=== PATIENT | male | born 1950 | race Caucasian/White ===

== ENCOUNTER → 2017-05-09 | Outpatient (CLI) | payer BC, OTHER ==
[~2017-05-09] MED LIST: ASPIRIN 81M81 MG/TA2; COZAAR 50MG50 MG/TAB; FLONASE NASAL S16 GM NS; GENTAMICIN180 MG/501 NS; LEVAQUIN 750MG750 M1 PO; LISINOPRIL10 MG PO; PHENERGAN W/CO120 M1 PO; PREDNISONE20 MG PO; SINGULAIR PO; SYMBICORT 10.10.2 ML IH; TETRACYCLINE H100 MG
== END ==
LOC: COL.VAS 09:17
DX: I08.2 Rheumatic disorders of both aortic and tricuspid valves (principal); I77.810 Thoracic aortic ectasia; Z79.899 Other long term (current) drug therapy

== ENCOUNTER → 2018-01-15 | Outpatient (CLI) | payer MEDICARE, OTHER ==
[~2018-01-15] VITALS: Ht 185.4 cm; Wt 106.6 kg
[~2018-01-15] MED LIST changes: +CLARITIN 1010 MG/TAB PO; +CLEOCIN HCL300 MG PO; +COZAAR 50MG50 MG/TAB PO; +ELIQUIS 5MG PO; +HCTZ 25MG TAB25 MG PO; +ICAPS AREDS SO1 EACH PO; +MOTRIN 600600 MG/TAB PO; +MULTIPLE VITAMI1 CAP PO; +OMEGA-3 1000 MG1 CAP PO; +PROTONIX 40MG T40 MG PO; +SINGULAIR 110 MG/TAB PO; +TORADOL 10MG TA10 MG PO; +TYLENOL 325MG325 MG PO; +ULTRAM 50MG TAB50 MG PO; +XANAX 0.5MG0.5 MG PO
[2018-01-15 12:43] VITALS: BP 157/95; PULSE 75
[2018-01-15 14:00] VITALS: BP 148/93; PULSE 66
== END ==
LOC: COL.RAD 12:07
DX: C85.91 Non-Hodgkin lymphoma, unspecified, lymph nodes of head, face, and neck (principal)
CPT/HCPCS: 25581

== ENCOUNTER 2018-01-24 07:06 | Observation (INO) | payer MEDICARE, OTHER ==
[~2018-01-24] VITALS: Ht 185.4 cm; Wt 105.0 kg
[2018-01-24 08:25] VITALS: BP 121/75; PULSE 77; TEMP 98.3
[2018-01-24] MEDS ORDERED: ZYLOPRIM 300MG300 MG PO (08:41)
[2018-01-24] MEDS ORDERED: PROTONIX 40MG T40 MG PO (08:41)
[2018-01-24] MEDS ORDERED: COZAAR 50MG50 MG/TAB PO (08:42)
[2018-01-24] MEDS ORDERED: HCTZ 25MG TAB25 MG PO (08:42)
[2018-01-24] MEDS ORDERED: SINGULAIR 110 MG/TAB PO (08:42)
[2018-01-24] MEDS ORDERED: OMEGA-31 SGL PO (08:42)
[2018-01-24] MEDS ORDERED: OCUVITE1 TA1 PO (08:43)
[2018-01-24] MEDS ORDERED: ELIQUIS 5MG PO (08:43)
[2018-01-24] MEDS ORDERED: TYLENOL 325MG325 MG PO (08:44)
[2018-01-24] MEDS ORDERED: IBU600 MG PO (08:45)
[2018-01-24] MEDS ORDERED: ULTRAM 50MG TAB50 MG PO (09:25)
[2018-01-24] MEDS ORDERED: COLACE 100100 MG/CAP PO (09:25)
[2018-01-24] MEDS ORDERED: ZOFRAN8 MG PO (09:26)
[2018-01-24] MEDS ORDERED: CLARITIN 1010 MG/TAB PO (09:26)
[2018-01-24 11:48] LABS: MUCOUS Present /lpf; PH 6 (5-8); SQUAMOUS EPITHELIAL None Seen /hpf; URINE APPEARANCE Clear; URINE BACTERIA None Seen /hpf; URINE BILIRUBIN Negative (NEGATIVE); URINE BLOOD Negative (NEGATIVE); URINE COLOR Straw; URINE GLUCOSE Negative (NEGATIVE); URINE KETONE Negative (NEGATIVE); URINE LEUKOCYTE ESTERASE Negative (NEGATIVE); URINE NITRATE Negative (NEGATIVE); URINE PROTEIN(semi-quant) Negative (NEGATIVE); URINE RBC 0-2 /hpf; URINE UROBILINOGEN Negative (NEGATIVE); URINE WBC 0-2 /hpf
[2018-01-24 11:59] LABS: COLLECTION METHOD CLEAN CATCH
[2018-01-24 13:03] VITALS: BP 141/76; PULSE 102; TEMP 98.4
[2018-01-24 16:26] VITALS: BP 134/84; PULSE 74; TEMP 97.9
[2018-01-24 19:44] VITALS: BP 148/73; PULSE 76; TEMP 98.2
[2018-01-24 23:50] VITALS: BP 137/77; PULSE 54; TEMP 97.8
[2018-01-25 04:37] VITALS: BP 127/76; PULSE 71; TEMP 97.7
[2018-01-25 07:50] VITALS: BP 136/79; PULSE 75; TEMP 97.8
[2018-01-25 11:20] VITALS: BP 137/88; PULSE 73; TEMP 97.3
== END 2018-01-25 14:25 | disposition home or self-care (01) ==
LOC: MEDICAL 07:06 → EDSTATUS 14:53 → MEDICAL 01-25 14:25
PROVIDERS: Internal Medicine Medical Oncology
DX: C85.90 Non-Hodgkin lymphoma, unspecified, unspecified site (principal); K21.9 Gastro-esophageal reflux disease without esophagitis; I10 Essential (primary) hypertension; I26.99 Other pulmonary embolism without acute cor pulmonale; Z79.01 Long term (current) use of anticoagulants; Z88.0 Allergy status to penicillin; Z90.49 Acquired absence of other specified parts of digestive tract; Z85.72 Personal history of non-Hodgkin lymphomas; Z87.891 Personal history of nicotine dependence; Z80.1 Family history of malignant neoplasm of trachea, bronchus and lung; Z82.3 Family history of stroke
CPT/HCPCS: 99238; G0378; G0379; J1100; J1644; J2405; J7030; J7050; J9045; J9181; J9208; J9209

== ENCOUNTER 2018-02-14 07:41 | Observation (INO) | payer MEDICARE, OTHER ==
[~2018-02-14] VITALS: Ht 185.4 cm; Wt 108.3 kg
[~2018-02-14 07:41] MED LIST changes: +COLACE 100100 MG/CAP PO; +IBU600 MG PO; +OCUVITE1 TA1 PO; +OMEGA-31 SGL PO; +ZOFRAN8 MG PO; +ZYLOPRIM 300MG300 MG PO
[2018-02-14 08:23] VITALS: BP 122/65; PULSE 72
[2018-02-14] MEDS ORDERED: ELIQUIS 5MG PO (09:36)
[2018-02-14 15:50] VITALS: BP 128/80; PULSE 80; TEMP 98.8
[2018-02-14 20:42] VITALS: BP 129/74; PULSE 75; TEMP 98.2
[2018-02-14 23:49] VITALS: BP 111/64; PULSE 62; TEMP 98.1
[2018-02-15 03:36] VITALS: BP 113/72; PULSE 66; TEMP 98.2
[2018-02-15 08:02] VITALS: BP 126/70; PULSE 64; TEMP 98.7
[2018-02-15 12:14] VITALS: BP 100/49; PULSE 69; TEMP 98.3; TEMP 98.5
== END 2018-02-15 14:00 | disposition home or self-care (01) ==
LOC: MEDICAL 07:41 → INPTSU 07:41 → MEDICAL 12:16
DX: Z51.11 Encounter for antineoplastic chemotherapy (principal); C85.90 Non-Hodgkin lymphoma, unspecified, unspecified site; K21.9 Gastro-esophageal reflux disease without esophagitis; I10 Essential (primary) hypertension; Z86.711 Personal history of pulmonary embolism; Z79.01 Long term (current) use of anticoagulants; Z87.891 Personal history of nicotine dependence; Z80.1 Family history of malignant neoplasm of trachea, bronchus and lung; Z80.7 Family history of other malignant neoplasms of lymphoid, hematopoietic and related tissues
CPT/HCPCS: G0378; J1100; J1644; J2405; J7030; J7050; J9045; J9181; J9208; J9209

== ENCOUNTER 2018-07-25 05:08 | Day surgery (SDC) | payer MEDICARE, OTHER ==
[~2018-07-25] VITALS: Ht 185.4 cm; Wt 101.9 kg
[2018-07-25 06:35] LABS: HEMOGLOBIN 11.9 g/dl (13.5-18.0); MEAN CELL VOLUME 90 fl (80.0-100.0); MEAN CORPUSCULAR HEMOGLOBIN 31 pg (27.0-31.0); MEAN CORPUSCULAR HGB CONC 35 g/dl (33.0-37.0); MEAN PLATELET VOLUME 9.1 fl (7.4-10.4); PLATELET COUNT 79 K/mm3 (130-400); RED BLOOD COUNT 3.81 M/mm3 (4.20-5.60); REDCELL DISTRIBUTION WIDTH-CV 17.5 % (11.5-14.5)
[2018-07-25 06:36] LABS: HEMATOCRIT 34.1 % (42.0-52.0)
[2018-07-25 06:40] VITALS: BP 135/78; PULSE 84; TEMP 97.7
[2018-07-25] MEDS ORDERED: MASON NATURAL2000 IU PO (06:58)
[2018-07-25] MEDS ORDERED: PROBIOTIC FORMU1 CAP PO (06:59)
[2018-07-25] MEDS ORDERED: XANAX .25M0.25 MG/TA PO (07:00)
[2018-07-25] MEDS ORDERED: ZYRTEC 10MG10 MG PO (07:00)
[2018-07-25] MEDS ORDERED: ZOVIRAX400 MG PO (07:03)
[2018-07-25] MEDS ORDERED: MAGNESIUM CHELA27 MG PO (07:04)
[2018-07-25 07:05] LABS: BAND 1 % (0-10); EOSINOPHIL 4 % (0-4); LYMPHOCYTE 56 % (20.0-51.0); MICROCYTOSIS 1+; NEUTROPHILS 28 % (42.0-75.2); PLATELET ESTIMATE DECREASED (NORMAL); TARGET CELLS 2+
[2018-07-25] MEDS ORDERED: MAGNESIUM200 MG PO (07:05)
[2018-07-25 08:11] VITALS: BP 111/68; PULSE 73
[2018-07-25] MEDS ORDERED: NORCO 325 MG-51 TAB PO (08:25)
[2018-07-25 08:26] VITALS: BP 112/72; PULSE 64
[2018-07-25 08:41] VITALS: BP 117/73; PULSE 65
[2018-07-25 08:56] VITALS: BP 119/74; PULSE 65
== END 2018-07-25 09:25 | disposition home or self-care (01) ==
LOC: SDCO 05:08
PROVIDERS: Surgery
DX: C83.31 Diffuse large B-cell lymphoma, lymph nodes of head, face, and neck (principal); K21.9 Gastro-esophageal reflux disease without esophagitis; I10 Essential (primary) hypertension; M19.90 Unspecified osteoarthritis, unspecified site; M10.9 Gout, unspecified; D64.9 Anemia, unspecified; Z79.01 Long term (current) use of anticoagulants; Z90.49 Acquired absence of other specified parts of digestive tract; Z87.891 Personal history of nicotine dependence; Z80.1 Family history of malignant neoplasm of trachea, bronchus and lung; Z82.3 Family history of stroke; Z82.49 Family history of ischemic heart disease and other diseases of the circulatory system
CPT/HCPCS: J0690; J2704; J3010; J7120

== ENCOUNTER 2018-08-22 13:28 | Outpatient (RCR) | payer MEDICARE, OTHER ==
[2018-08-22] VITALS (10 sets, daily range): BP systolic 119–139; BP diastolic 71–89; PULSE 67–84; TEMP 98.1–98.6
[~2018-08-22] VITALS: Ht 185.4 cm; Wt 98.3 kg
[2018-08-22] MEDS ORDERED: PREDNISONE20 MG PO (13:57)
[2018-08-22 19:55] LABS: MEAN CELL VOLUME 88 fl (80.0-100.0); MEAN CORPUSCULAR HGB CONC 35 g/dl (33.0-37.0); MEAN PLATELET VOLUME 8.8 fl (7.4-10.4); RED BLOOD COUNT 3.53 M/mm3 (4.20-5.60); REDCELL DISTRIBUTION WIDTH-CV 17.6 % (11.5-14.5)
[2018-08-22 19:56] LABS: HEMATOCRIT 31.1 % (42.0-52.0); HEMOGLOBIN 10.8 g/dl (13.5-18.0); MEAN CORPUSCULAR HEMOGLOBIN 31 pg (27.0-31.0)
[2018-08-22 19:57] LABS: PLATELET COUNT 20 K/mm3 (130-400)
[2018-08-22 20:12] LABS: ANISOCYTOSIS 2+; BAND 19 % (0-10); HYPOCHROMIA 1+; LYMPHOCYTE 70 % (20.0-51.0); NEUTROPHILS 6 % (42.0-75.2); PLATELET ESTIMATE DECREASED (NORMAL)
== END 2018-08-22 20:16 | disposition home or self-care (01) ==
LOC: EUO 13:28
PROVIDERS: Internal Medicine Medical Oncology
DX: D64.9 Anemia, unspecified (principal); D69.6 Thrombocytopenia, unspecified
CPT/HCPCS: J7050; P9037; P9040

== ENCOUNTER → 2018-08-22 | Emergency (ER) | payer MEDICARE, OTHER ==
[~2018-08-22] VITALS: Ht 185.4 cm; Wt 92.7 kg
[~2018-08-22] MED LIST changes: +ATIVAN 1MG T1 MG/TAB PO; +MAGNESIUM CHELA27 MG PO; +MAGNESIUM200 MG PO; +MASON NATURAL2000 IU PO; +NORCO 325 MG-51 TAB PO; +PROBIOTIC FORMU1 CAP PO; +TYLENOL 500MG500 MG PO; +XANAX .25M0.25 MG/TA PO; +ZOVIRAX400 MG PO; +ZYRTEC 10MG10 MG PO
[2018-08-22 10:11] VITALS: BP 131/70; PULSE 88; TEMP 98.6
[2018-08-22 11:13] LABS: MEAN CELL VOLUME 88 fl (80.0-100.0); MEAN CORPUSCULAR HGB CONC 35 g/dl (33.0-37.0); MEAN PLATELET VOLUME 10.8 fl (7.4-10.4); RED BLOOD COUNT 2.48 M/mm3 (4.20-5.60)
[2018-08-22 11:35] LABS: HEMATOCRIT 21.7 % (42.0-52.0); HEMOGLOBIN 7.6 g/dl (13.5-18.0); MEAN CORPUSCULAR HEMOGLOBIN 31 pg (27.0-31.0)
[2018-08-22 11:37] LABS: PLATELET COUNT 2 K/mm3 (130-400)
[2018-08-22 11:45] LABS: EOSINOPHIL 3 % (0-4); LYMPHOCYTE 61 % (20.0-51.0); METAMYELOCYTE 3 % (0-0); NEUTROPHILS 3 % (42.0-75.2)
[2018-08-22 11:46] LABS: OVALOCYTES 2+; TARGET CELLS 3+
[2018-08-22 11:47] LABS: PLATELET ESTIMATE DECREASED (NORMAL)
[2018-08-22 11:48] LABS: ANISOCYTOSIS 2+
[2018-08-22 13:35] LABS: INR 1.2 (0.8-3.0); PROTHROMBIN TIME 13.4 SECONDS (9.7-12.8)
[2018-08-22 13:37] LABS: PARTIAL THROMBOPLASTIN TIME 26.3 SECONDS (26.0-37.0)
== END ==
LOC: COL.ER 10:04
PROVIDERS: Family Medicine
DX: D61.818 Other pancytopenia (principal); D64.9 Anemia, unspecified; K21.9 Gastro-esophageal reflux disease without esophagitis; I10 Essential (primary) hypertension
CPT/HCPCS: J0696; J7030; J7512